=== PATIENT | male | born 1960 | race Caucasian/White ===

== ENCOUNTER 2021-05-23 20:27 | Emergency (ER) | payer OTHER, SELFPAY ==
[2021-05-23 20:36] VITALS: BP 166/96; PULSE 63; RESP 16; TEMP 36.7; O2SAT 97; BMI 21.7
--- NOTE | 2021-05-23 21:07 | XRR_ITS ---
PROCEDURE INFORMATION: Exam: XR Left Foot Exam date and time: 05/23/2021 9:07 PM Age: 61 years old Clinical indication: Swelling, leg or foot; Additional info: Osteo eval TECHNIQUE: Imaging protocol: XR Left foot. Views: 3 or more views. COMPARISON: No relevant prior studies available. FINDINGS: Bones/joints: No irregular osseous erosions. Negative for fracture. Soft tissues: No subcutaneous emphysema. XR/XR foot LT min 3V* [id number] IMPRESSION: No radiographic evidence of acute osteomyelitis.
--- NOTE | 2021-05-23 21:07 | XRR_ITS ---
PROCEDURE INFORMATION: Exam: XR Left Tibia and Fibula Exam date and time: 05/23/2021 9:07 PM Age: 61 years old Clinical indication: Swelling, leg or foot; Additional info: Osteo eval TECHNIQUE: Imaging protocol: XR Left tibia and fibula. Views: 2 views. COMPARISON: No relevant prior studies available. FINDINGS: Bones/joints: Normal. Soft tissues: Wound site along the posterior lower leg/ankle. XR/XR tibia fibula LT 2V [id number] IMPRESSION: No evidence of osteomyelitis.
--- NOTE | 2021-05-23 21:26 | W.ED.EXTPRO ---
HPI - Extremity Problem General: Chief complaint: Extremity Injury, Lower Stated complaint: left leg pain Time Seen by Provider: 05/23/21 20:42 History of Present Illness: HPI Narrative: Patient is a 59-year-old male with no known past medical history presented to emergency room with signs of worsening left lower extremity swelling, redness, warmth which started about 30 days ago when patient got off his pickup truck and scraped the back of his left leg against a metal cover. Initially patient noticed a mild bruise, however since then, patient noticed worsening wound site no left lower extreme knee swelling and pain. Patient denies any subjective fever or chills, history of diabetes, history immunocompromise, IVDU or history of HIV. Patient reports pain has significantly worsened decided to come to the emergency room for evaluation at this time. Onset: 30 days ago Duration: 30 days Intensity: moderate Location: home Review of Systems Narrative: Constitutional: no subjective fever, no generalized weakness HEENT: No vision changes CV: No chest pain, no palpitations PULM: no cough, nodyspnea. GI: No abdominal pain, no N/V/D. : No dysuria MSKEL: No muscle pain SKIN: +warmth, pain, redness on the L leg to the mid calf area NEURO: No headache, no focal weakness. HEME: No visible bruises PSYCH: Normal mood Physical Exam Narrative: EXAM NARRATIVE: Head: Atraumatic Eyes: PERRL, conjunctiva without injection ENT: Mucous membrane moist NECK: Supple without lymphadenopathy LUNGS: LCAB, no crackles/rhonchi or rales CV: RRR ABDOMEN: Soft, nontender in all quadrants, no guarding or rebound tenderness EXTREMITY: Normal RO, 2+ DP/PT pulses b/l, <3 seconds cap refill, sensations in the LEs intact b/l M SKIN: +L lower extremity posterior calf non-granulating/non-draininag wound with warmth, edema, and tenderness to palpation to the midthigh, NEURO: Awake and alert. No focal motor deficits. PSYCH: Normal mood and affect. Course Vital Signs: Vital signs: Vital Signs Temperature 98.1 F 05/23/21 20:36 Pulse Rate 63 05/23/21 20:36 Respiratory Rate 16 05/23/21 20:36 Blood Pressure 166/96 05/23/21 20:36 Pulse Oximetry 97 05/23/21 20:36 MDM - Extremity (Nontraumatic) MDM Narrative: Medical decision making narrative: 61-year-old male presenting to the emergency room with complaints of left lower extremity swelling erythema warmth concerning for possible cellulites vs abscess vs osteomyelitis. Shortly after lab work and x-ray was performed, patient eloped from the emergency department. He left behind a phone number. We have attempted to contact patient on multiple occasions with the phone number however was unsuccessful. A voicemail was left for patient to return to the emergency room to obtain antibiotics. Lab Data: Labs: Lab Results 05/23/21 Range/Units 21:33 WBC 8.2 (4.0-10.0) 10^3/ uL RBC 4.60 (4.1-5.3) 10^6/u L Hgb 15.3 (11.7-16.6) g/dL Hct 45.4 (42.0-52.0) % MCV 98.7 H (80-94) fL MCH 33.3 (28.0-34.0) pg MCHC 33.7 (30.0-36.0) g/dL RDW 12.6 (12.1-15.1) % Plt Count 275 (130-400) 10^3/c mm MPV 9.3 (7.4-10.4) fL Neut % (Auto) 41.8 % Lymph % (Auto) 40.3 % [place] % (Auto) 13.6 % Eos % (Auto) 2.6 % Baso % (Auto) 1.3 % Neut # (Auto) 3.41 (1.8-7.7) 10^3/u L Lymph # (Auto) 3.3 (0.8-4.8) 10^3/u L [place] # (Auto) 1.1 H (0.2-0.9) 10^3/u L Eos # (Auto) 0.2 (0.0-0.8) 10^3/u L Baso # (Auto) 0.1 (0.0-0.1) 10^3/u L Nucleated RBC % (a uto) 0 % Nucleated RBCs # 0.0 /100WBC Discharge Plan Discharge Patient Disposition: Home Condition: Stable Discharge Orders: Discharge ED (Routine); Ordered 08/04/21 Ordered By: Gabriel Reese Patient Instructions: Opioid Safety Coding Level of Care Code ED Bullet Assembly Press Operator for Carla Swanson
[2021-05-23 21:42] LABS: Basophils # 0.1 10^3/uL (0.0-0.1); Basophils % 1.3 %; Eosinophils # 0.2 10^3/uL (0.0-0.8); Eosinophils % 2.6 %; Hematocrit 45.4 % (42.0-52.0); Hemoglobin 15.3 g/dL (11.7-16.6); Lymphocytes # 3.3 10^3/uL (0.8-4.8); Lymphocytes % 40.3 %; Mean Corpuscular HGB Conc 33.7 g/dL (30.0-36.0); Mean Corpuscular Hemoglobin 33.3 pg (28.0-34.0); Mean Corpuscular Volume 98.7 fL (80-94); Mean Platelet Volume 9.3 fL (7.4-10.4); Monocytes # 1.1 10^3/uL (0.2-0.9); Monocytes % 13.6 %; Neutrophils # 3.41 10^3/uL (1.8-7.7); Neutrophils % 41.8 %; Nucleated Red Blood Cells % 0 %; Platelet Count 275 10^3/cmm (130-400); Red Cell Distribution Width 12.6 % (12.1-15.1); White Blood Count 8.2 10^3/uL (4.0-10.0)
[2021-05-23 22:10] LABS: Anion Gap 16.1 (5-19); Blood Urea Nitrogen 5 mg/dL (8-23); C Reactive Protein 1.6 mg/L (0.0-4.9); Calcium 8.1 mg/dL (8.5-10.5); Carbon Dioxide 24 mmol/L (22-29); Chloride 102 mmol/L (98-107); Glomerular Filtration Rate 168.5 mL/min (90-130); Glucose 126 mg/dL (65-115); Osmolality Calculated 285 mOsm/kg (285-295); Potassium 4.1 mmol/L (3.5-5.1); Sodium 138 mmol/L (136-145)
[2021-05-23 22:47] LABS: Erythrocyte Sedimentation Rate 16 mm/hr (0-10)
== END 2021-05-23 21:51 | disposition home or self-care (01) ==
PROVIDERS: Emergency Provider Emergency Medicine
DX: M79.605 Pain in left leg (principal)
CPT/HCPCS: 36415; 73590; 73630; 80048; 85025; 85651; 86140; 87040; 99283

== ENCOUNTER 2021-06-27 14:01 | Outpatient (CLI) | payer OTHER, SELFPAY | END 2021-06-27 14:02 | disposition home or self-care (01) | PROVIDERS: Visit Provider Thoracic Surgery (Cardiothoracic Vascular Surgery) | DX: I96 Gangrene, not elsewhere classified (principal); L97.822 Non-pressure chronic ulcer of other part of left lower leg with fat layer exposed; F17.210 Nicotine dependence, cigarettes, uncomplicated | CPT/HCPCS: 11043; 87070; 87077; 87176; 87186; 87205; G0463 ==

== ENCOUNTER → 2021-07-02 10:22 | Outpatient (BNVA) | payer OTHER, SELFPAY | PROVIDERS: Visit Provider Internal Medicine Cardiovascular Disease | DX: Z01.818 Encounter for other preprocedural examination (principal); I73.9 Peripheral vascular disease, unspecified; Z79.899 Other long term (current) drug therapy | CPT/HCPCS: 80048; 85025; 85610; 87635 ==

== ENCOUNTER 2021-07-03 10:21 | Outpatient (RCR) | payer OTHER, SELFPAY | END 2021-07-19 23:59 | disposition home or self-care (01) | LOC: WOUND 10:21 | PROVIDERS: Visit Provider Thoracic Surgery (Cardiothoracic Vascular Surgery) | DX: I73.9 Peripheral vascular disease, unspecified (principal); L97.822 Non-pressure chronic ulcer of other part of left lower leg with fat layer exposed; F17.210 Nicotine dependence, cigarettes, uncomplicated | CPT/HCPCS: 11042 ==

== ENCOUNTER 2021-07-04 06:46 | Outpatient (CLI) | payer OTHER, SELFPAY ==
[2021-07-04] VITALS (14 sets, daily range): BP systolic 132–154; BP diastolic 73–97; PULSE 78–92; RESP 16–26; TEMP 36.9; O2SAT 92–99; BMI 24.1
--- NOTE | 2021-07-04 07:30 | XACV_ITS ---
Ht: 183 cm Wt: 81 kg BSA: 2.03 m2 Gender: Male : 1960 Exam Type: Invasive Peripheral Vascular Procedure(s): Procedure Description: Peripheral Cath Diagnostic Procedure Procedure Description: Abdominal aortic angiography Procedure Description: Lower extremities' angiography Procedure Description: Peripheral vascular Intervention Procedure Description: PV Balloon Exam Priority: Routine Lower Extremity Interventional Findings Percutaneous angioplasty/intervention of the left SFA: Using right common femoral approach along 6 [place] sheath was placed. With the help of Glidewire and seeker we were able to cross through long lesion of left SFA popliteal vessel into left tibioperoneal trunk and tibial artery. Multiple balloon angioplasty using nondrug coated balloon was performed first. It was followed by drug-coated balloon application using Lutonix balloon within the prior stent and proximal segment to it.. Please read the details in the right and the segment. Please also note that patient was explained all risk benefit and alternative for the drug-coated balloon he understand FDA warning regarding higher mortality and subsets, he gave me permission to proceed with it if required. Excellent angiographic result in left SFA popliteal, tibioperoneal trunk was noted. Good three-vessel runoff including anterior and posterior tibial and peroneal artery was noted below the left knee all the way to the foot. . Conclusions Indication for peripheral angiogram and intervention: Critical limb ischemia in the patient with history of prior stent in mid to distal left SFA. Abnormal noninvasive study suggestive of no flow in the left SFA and below the knee. Abdominal angiogram: Luminal irregularity of abdominal aorta without significant embolism, normal right and left renal artery without significant stenosis, bilaterally common iliac arteries without significant stenosis, bilateral external/internal artery without significant stenosis, bilateral common femoral artery without significant stenosis, bilateral profundofemoral artery without significant stenosis.Left SFA is chronically occluded from proximal to distal segment. Mid to distal left SFA stent appeared to be chronically occluded. Left popliteal artery no flow was noted. No flow was observed in left tibioperoneal trunk or below the knee.Right SFA, popliteal, tibioperoneal trunk did not show significant stenosis. Due to less contrast vessels below the right knee was not well visualized probably patent . Recommendations 1-Return to inpatient for close monitoring and routine cath care2-Risk factor modification for secondary prevention3-Statin and aspirin 81 mg life--long, if tolerated 4-Patient was pre-loaded with 3 00 mg of Plavix, continue Plavix 75mg p.o. daily for at least three months. 5-Continue optimal medical management6-Follow up with Dr. Heller in four weeks and your primary care in 10 days. Hemodynamic Data Phase:Rest AO : 184.0 / 86.0 ( 125.0 ) @ 8:50:00 AM Access Site Site: Femoral artery Sheath Size: 6 Fr Hemost... Success: Unsuccessful Procedure Details Findings Procedure Consent Obtained. Admit Source: Out Patient. Identified patient by full name and date of as verbalized by the patient/guarantor. Does the consent match the physician's order: Yes. Accurate & Complete Informed Consent: Yes. Inpatient/Outpatient History & Physical on Chart: Yes. If H&P is completed, is and addenduem needed:. Relevant Radiology Images available: Yes. Pre-op teaching completed and patient verbalized understanding. The risks, benefits, and alternatives of sedation and/or procedure were discussed by physician. The patient agrees to continue. Procedure started. Correct patient, site and procedure confirmed by cath team. PERRLA. Strong, equal hand raisin separator operator bilaterally. Lungs clear x 5 lobes. IV Site on Arrival: 20 gauge in the left anticubital. IV Fluids: 0.9% NaCl at KVO. 75 mL infused prior to mill labor supervisor. Pre Procedural Pulses: right dorsalis pedis was Doppled. Pre Procedural Pulses: left dorsalis pedis was Absent. Pre Procedural Pulses: right posterior tibial was Doppled. Pre Procedural Pulses: left posterior tibial was Absent. Oxygen started at 2liters/min via nasal canula. right groin was prepped with chloroprep then draped in the usual sterile fashion. Physician notified. Physician arrived. Physician scrubbed in. Time out performed with cath team. Lidocaine 1% infiltrated to the right groin. Wire and needle out. Arterial access obtained with micropuncture set. A 5F UF catheter in over wire. Catheter out over the Glidewire. Sheath upsized to a 6 Fr Flexor. Seeker catheter inserted over the wire. Seeker out. Inflation number : 1 A AB Brewster 35 SUPPLY CHAIN PROGRAM MANAGER Catheter [id number] was prepped and advanced across the Superficial Femoral, Left , then inflated to 6 MISSAEL for 1:55 seconds. Inflation number: 2 The AB Brewster 35 SUPPLY CHAIN PROGRAM MANAGER Catheter [id number] was reinflated across the Superficial Femoral, Left, to 4 MISSAEL for 2:03 seconds. Inflation number: 3 The AB Brewster 35 SUPPLY CHAIN PROGRAM MANAGER Catheter [id number] was reinflated across the Superficial Femoral, Left, to 8 MISSAEL for 2:03 seconds. Inflation number: 4 The AB Brewster 35 SUPPLY CHAIN PROGRAM MANAGER Catheter [id number] was reinflated across the Superficial Femoral, Left, to 8 MISSAEL for 2:03 seconds. Balloon out. Results checked. Inflation number : 5 A Bard Lutonix 035 [id number] was prepped and advanced across the Superficial Femoral, Left , then inflated to 6 MISSAEL for 2:00 seconds. Lot [id number] Exp 10/31/2023. Inflation number: 6 The Bard Lutonix 035 [id number] was reinflated across the Superficial Femoral, Left, to 6 MISSAEL for 0:55 seconds. Results checked. Balloon out, sheath exchanged for short 6Fr sheath. Sheath injected in Right common femoral artery and runoff performed at 10 for 30. Sheath(s) sutured into position with 2-0 silk and sterile 4x4's and Op-site applied over the site. No oozing or signs and symptoms of hematoma noted. Arterial sheath flushed and connected to tranducer and pressure bag with heparinized saline. Post Procedure: Pulses reassessed and unchanged. PERRLA. Strong, equal hand raisin separator operator bilaterally. No VTE prophylaxis required. Medication's Wasted: Other Hydralazine = 10 mg. Medication's Wasted: Heparin = 3000 u. Total IV fluids: 100 mL. Contrast type used: Visipaque 320 mgI/mL, 500 mL bottle. Contrast Material : Visipaque 150 ml. Estimated blood loss: 5mL-10mL. Procedure completed. Patient transferred by bed to 1st floor. Vital chart was stopped. Procedure Medications Start: 9:18 AM Stop: 9:18 AM Medication: Versed Amount: 1 mg Route: I.V. Start: 9:27 AM Stop: 9:27 AM Medication: Versed 1 mg and Fentanyl 25 mcg Route: I.V. Start: 9:48 AM Stop: 9:48 AM Medication: Heparin Amount: 6000 units Route: I.V. Start: 9:53 AM Stop: 9:53 AM Medication: Versed 1 mg and Fentanyl 25 mcg Route: I.V. Start: 10:05 AM Stop: 10:05 AM Medication: Versed Amount: 1 mg Route: I.V. Start: 10:08 AM Stop: 10:08 AM Medication: Fentanyl Amount: 50 mcg Start: 10:15 AM Stop: 10:15 AM Medication: Hydralazine Amount: 10 mg Route: I.V. Start: 10:16 AM Stop: 10:16 AM Medication: Plavix Amount: 300 mg Route: P.O. I, the attending physician, have reviewed and verified all procedure medications. Yes, all medications given per verbal order History/Risk Factors Hypertension: No Dyslipidemia: No Peripheral Arterial Disease (PAD): Yes Obesity: No Renal Disease: No Tobacco Use: Current/Recent(w/in 1 year) Prior Interventions PCI: No CABG: No Valve Surgery: No Report Signatures Finalized by Anatoliy Heller MD on 07/18/2021 07:41 PM
[2021-07-04] MEDS: diphenhydrAMINE 50 mg Capsule PO (08:06)
--- NOTE | 2021-07-04 11:05 | W.PM.OPSUD ---
Surgery/Procedure H&P Update DATE OF PROCEDURE: July 04, 2021 DATE H&P PERFORMED: 06/28/21 H&P UPDATE INFORMATION: I have reviewed H&P completed within last 30 days and I have examined patient prior to procedure PREOP DIAGNOSIS: Critical limb ischemia with nonhealing ulcer PLANNED PROCEDURE: Operation Date: 07/04/21 08:30 Proposed Procedures p Peripheral Diagnostic(Bilateral) - Anatoliy Heller MD PATIENT REASSESSED PRIOR TO SEDATION, WITH NO CHANGE NOTED: Yes PHYSICAL EXAM: alert, oriented x 3 and clear to auscultation bilaterally AIRWAY EVAL/ANESTHESIA PLAN: ASA II and Risks, benefits & alternatives of sedation and/or procedure discussed ADDITIONAL INFORMATION: Patient has been explained all risk benefit and already vascular injury thromboembolic phenomena leading to acute limb ischemia amputation. Patient has been consented regarding drug-coated balloon use he understand the risk for bad outcome in that group he is understand the risk for FDA warning. He would like to proceed with it.
[2021-07-04] MEDS: aspirin 81 mg EC Tablet PO (12:53)
[2021-07-04] MEDS: amlodipine 5 mg Tablet PO (12:54)
[2021-07-04] MEDS: sodium chloride 0.9% 1,000 ML 100 ML IV (12:57)
[2021-07-04 13:45] LABS: Partial Thromboplastin Time 29.6 SECONDS (23.9-36.7)
[2021-07-04] MEDS: HYDROcodone-acetaminophen 5-325 mg Tablet 1 TAB PO (14:26)
--- NOTE | 2021-07-04 15:56 | PC.NURSE ---
Pts cardiac sheath pulled at approximately 1525 , pressure held for 20 minutes. Pt tolerated well. No hematoma, bruising, swelling, or excess bleeding noted. Drsg in place dry and intact. Pt had no c/o pain or discomfort at the present time. Call light in reach. Will cont to monitor.
[2021-07-04] MEDS: amoxicillin-clav 875-125 mg Tablet 1 TAB PO (18:04)
[2021-07-04] MEDS: sulfamethoxazole-trimeth DS 160-800 mg Tablet 1 TAB PO (18:04)
--- NOTE | 2021-07-05 00:24 | PC.NURSE ---
Discharge Note 07/04/2021 2200: Patient discharged to home via personal transportation accompanied by personal friend. Discharge instructions reviewed with patient and/or event sales representative. Mobile pharmacy medications and/or prescriptions provided. IV removed, pressure dressing applied. Belongings/home medications returned. Patient verbalized understanding of all teaching.
== END 2021-07-04 20:30 | disposition home or self-care (01) ==
LOC: CCL 06:51 → CSU 19:35
PROVIDERS: Visit Provider Internal Medicine Cardiovascular Disease
DX: I70.222 Atherosclerosis of native arteries of extremities with rest pain, left leg (principal); I10 Essential (primary) hypertension; E78.5 Hyperlipidemia, unspecified; F17.210 Nicotine dependence, cigarettes, uncomplicated
CPT/HCPCS: 36415; 37224; 75625; 75716; 85730; C1725; C1769; C1887; C1894; C2623; J0360; J1644; J2250; J3010; J7030; Q0163; Q9967

== ENCOUNTER 2021-07-11 14:48 | Outpatient (CLI) | payer OTHER, SELFPAY | END 2021-07-11 14:49 | disposition home or self-care (01) | LOC: WOUND 14:49 | PROVIDERS: Visit Provider Thoracic Surgery (Cardiothoracic Vascular Surgery) | DX: I73.9 Peripheral vascular disease, unspecified (principal); L97.822 Non-pressure chronic ulcer of other part of left lower leg with fat layer exposed; F17.210 Nicotine dependence, cigarettes, uncomplicated | CPT/HCPCS: 11042 ==

== ENCOUNTER 2021-07-18 12:58 | Outpatient (CLI) | payer OTHER, SELFPAY | END 2021-07-18 12:59 | disposition home or self-care (01) | LOC: WOUND 12:59 | PROVIDERS: Visit Provider Thoracic Surgery (Cardiothoracic Vascular Surgery) | DX: I73.9 Peripheral vascular disease, unspecified (principal); L97.822 Non-pressure chronic ulcer of other part of left lower leg with fat layer exposed; F17.200 Nicotine dependence, unspecified, uncomplicated | CPT/HCPCS: 11042 ==

== ENCOUNTER → 2024-05-20 08:41 | Outpatient (BNVA) | payer MEDICARE, OTHER, MEDICAID, SELFPAY | PROVIDERS: PCP Family Medicine; Visit Provider Family Medicine | DX: I10 Essential (primary) hypertension (principal); Z12.5 Encounter for screening for malignant neoplasm of prostate; N40.0 Benign prostatic hyperplasia without lower urinary tract symptoms | CPT/HCPCS: 80053; 80061; 84153; 84439; 84443; 85025 ==

== ENCOUNTER 2024-05-24 07:04 | Outpatient (CLI) | payer MEDICARE, OTHER, MEDICAID, SELFPAY ==
--- NOTE | 2024-05-24 07:45 | CT_ITS ---
WS: [id number] LDCT LUNG CANCER SCREENING HISTORY: screening TECHNIQUE: Axial imaging performed from the apices to 1 cm below the costophrenic angles. Coronal and sagittal reformats are submitted with axial MIP series. All CT scans at [facility] use at least one of these dose optimization techniques: automated exposure control; mA and/or kV adjustment per patient size (includes targeted exams where dose is matched to clinical indication); or iterativ e reconstruction. DLP: 72.21 mGy.cm DIvol: Mean CTDIvol: 1.30 (mGy) COMPARISON: None available. Diagnostic quality: Satisfactory Lungs: Mild pulmonary hyperexpansion. Paraseptal and centrilobular emphysema. No pulmonary mass or no dule. No endobronchial lesions. Benign calcified granuloma LEFT lung base. Heart: Normal size heart with no pericardial effusion.. Other findings: No adenopathy identified. Mild atherosclerosis aorta. No pericardial or pleural effus ions. Visualized adrenal glands are negative. CT/CT lung screening [id number] IMPRESSION: LUNG-RADS: 2-Benign Appearance or Behavior FOLLOW UP: 12 Month: Continue annual screening with LDCT OTHER FINDINGS (S MODIFIER): None.
== END 2024-05-24 07:05 | disposition home or self-care (01) ==
LOC: RAD 07:04
PROVIDERS: PCP Family Medicine; Visit Provider Family Medicine
DX: Z12.2 Encounter for screening for malignant neoplasm of respiratory organs (principal); F17.219 Nicotine dependence, cigarettes, with unspecified nicotine-induced disorders; J43.8 Other emphysema; J43.2 Centrilobular emphysema; J84.10 Pulmonary fibrosis, unspecified
CPT/HCPCS: 71271

== ENCOUNTER → 2024-07-01 15:00 | Outpatient (BNVA) | payer OTHER, MEDICAID, SELFPAY | PROVIDERS: PCP Family Medicine; Visit Provider Family Medicine | DX: Z91.014 Allergy to mammalian meats (principal) | CPT/HCPCS: 82785; 86001; 86003; 86008 ==

== ENCOUNTER 2025-02-13 07:05 | Emergency (ER) | payer MEDICARE, MEDICAID, SELFPAY ==
[2025-02-13] VITALS (8 sets, daily range): BP systolic 101–140; BP diastolic 59–67; PULSE 68–78; RESP 16–24; TEMP 36.8; O2SAT 87–96; BMI 24.4
--- NOTE | 2025-02-13 07:06 | XRR_ITS ---
PROCEDURE INFORMATION: Exam: XR Chest Exam date and time: 02/13/2025 7:26 AM Age: 64 years old Clinical indication: Pain; Shortness of breath and other: Distended abdomen; Chest pressure; Additional info: Cp TECHNIQUE: Imaging protocol: Radiologic exam of the chest. Views: 1 view. COMPARISON: CT lung screening [id number] 05/24/2024 7:36 AM FINDINGS: Lungs: The lungs are clear. Lungs appear mildly hyperinflated suggesting possible asthma or COPD. Pleural spaces: Unremarkable. No pleural effusion. No pneumothorax. Heart/Mediastinum: The heart size is within normal limits. Vasculature: There are atherosclerotic changes in the aorta. Bones/joints: Unremarkable. XR/XR chest 1V portable [id number] IMPRESSION: 1. No acute infiltrates 2. Lungs appear mildly hyperinflated suggesting possible asthma or COPD
--- NOTE | 2025-02-13 07:12 | CTR_ITS ---
PROCEDURE INFORMATION: Exam: CTA Chest With Contrast Exam date and time: 02/13/2025 7:59 AM Age: 64 years old Clinical indication: Abdominal tenderness and bloating; Shortness of breath; Additional info: SOB TECHNIQUE: Imaging protocol: Computed tomographic angiography of the chest with contrast. Exam focused on the arteries. 3D rendering (Not supervised by radiologist): MIP and/or 3D reconstructed images were created by the technologist. Radiation optimization: All CT scans at this facility use at least one of these dose optimization techniques: automated exposure control; mA and/or kV adjustment per patient size (includes targeted exams where dose is matched to clinical indication); or iterative reconstruction. Contrast material: OMNIPAQUE 350; Contrast volume: 100 ml; Contrast route: INTRAVENOUS (IV); COMPARISON: CT lung screening [id number] 05/24/2024 7:36 AM RADIATION DOSE METRICS: Total DLP (mGy-cm): 1220.68 FINDINGS: Pulmonary arteries: No pulmonary embolus is detected in the main pulmonary trunk. None is detected in the main right or left pulmonary arteries. No pulmonary embolus is detected in the proximal 2nd or 3rd order branch vessels. Aorta: There are atherosclerotic changes in the thoracic aorta without aneurysm or dissection. Lungs: There is mild atelectasis in the left lung base. There are no definite infiltrates or pulmonary masses. There is a calcified granuloma in the left lower lobe. There are no endobronchial lesions. Pleural spaces: There is no pleural effusion. Heart: The heart size is within normal limits. There is no pericardial effusion. Coronary arteries: There is coronary artery calcification. There is coronary artery calcification. Lymph nodes: There are few borderline prominent mediastinal and hilar lymph nodes which are nonspecific Bones/joints: There are degenerative changes in the spine there is mucous plugging in left lower lobe bronchi Soft tissues: There is bilateral gynecomastia. PROCEDURE INFORMATION: Exam: CT Abdomen And Pelvis With Contrast Exam date and time: 02/13/2025 7:59 AM Age: 64 years old Clinical indication: Abdominal tenderness and bloating; Shortness of breath; Additional info: SOB TECHNIQUE: Imaging protocol: Computed tomography of the abdomen and pelvis with contrast. Radiation optimization: All CT scans at this facility use at least one of these dose optimization techniques: automated exposure control; mA and/or kV adjustment per patient size (includes targeted exams where dose is matched to clinical indication); or iterative reconstruction. Contrast material: OMNIPAQUE 350; Contrast volume: 100 ml; Contrast route: INTRAVENOUS (IV); COMPARISON: CT lung screening [id number] 05/24/2024 7:36 AM RADIATION DOSE METRICS: Total DLP (mGy-cm): 1220.68 FINDINGS: Liver: The liver is diffusely fatty infiltrated. There are no focal liver lesions. Gallbladder and biliary ducts: There are no gallstones. There is no gallbladder wall thickening or biliary ductal dilatation. Pancreas: There is no pancreatic mass or pancreatic ductal dilatation. Spleen: There are splenic granulomata. The spleen is otherwise unremarkable. Adrenal glands: The adrenal glands are normal. Kidneys and ureters: There are no renal or ureteral calculi. There is no hydronephrosis. There is mild right perinephric fat stranding Stomach and bowel: There are dilated loops of small and large bowel with air-fluid levels consistent with an adynamic ileus. The bowel-gas pattern does not appear obstructed. Appendix: The appendix is not definitively identified. There are no inflammatory changes adjacent to the cecum. Intraperitoneal space: Unremarkable. No free air. No significant fluid collection. Vasculature: The portal venous system is patent. There are atherosclerotic changes involving the aorta without aneurysm. Without aneurysm Lymph nodes: Unremarkable. No enlarged lymph nodes. Urinary bladder: The bladder is mildly distended. Reproductive: The prostate gland is enlarged and mildly heterogeneous. Bones/joints: There are degenerative changes in the symphysis, hips, sacroiliac joints and spine Soft tissues: Unremarkable CT/CT angio chest w abd pel w con IMPRESSION: 1. Negative for aortic aneurysm or dissection 2. Negative for detectable pulmonary embolus 3. Coronary artery calcification 4. Borderline mediastinal and hilar lymph nodes. 5. Some mucous plugging left lower lobe bronchi 6. Negative for infiltrate IMPRESSION: 1. Fatty infiltration liver no focal liver lesions 2. Bowel-gas pattern most consistent with a mild adynamic ileus 3. Appendix not identified but no inflammatory changes adjacent to the cecum 4. Enlarged prostate gland
--- NOTE | 2025-02-13 07:13 | ECG_ITS ---
[facility] Test Date: 2025-02-13 Pat Name: Jim Denis Department: Room: Gender: Male Injection Molding Process Technician: : 1960 Requested By: Luz Maria Tatum Order Number: [id number] Pranay MD: KELLY MANNING Measurements Intervals [place] Rate: 72 P: 84 RI: 188 QRS: 99 QRSD: 97 T: 79 QT: 424 QTc: 466 Interpretive Statements SINUS RHYTHM BORDERLINE RIGHT AXIS DEVIATION [QRS AXIS > 90] No previous ECG available for comparison Electronically Signed On 02-14-2025 20:59:18 CDT by KELLY MANNING [id number]
[2025-02-13 07:24] LABS: Basophils % 0.4 %; Eosinophils # 0.1 10^3/uL (0.0-0.8); Hematocrit 40.8 % (37-53); Lymphocytes # 2.8 10^3/uL (0.8-4.8); Lymphocytes % 42.1 %; Mean Corpuscular HGB Conc 35.3 g/dL (30-55); Mean Corpuscular Volume 93.6 fl (82-101); Mean Platelet Volume 10.1 fL (7.4-10.4); Monocytes # 0.7 10^3/uL (0.2-0.9); Monocytes % 10.9 %; Neutrophils # 3.02 10^3/uL (1.8-7.7); Neutrophils % 45.5 %; Nucleated Red Blood Cells % 0 %; Platelet Count 140 10^3/cmm (157-399); Red Blood Count 4.36 10^6/uL (3.85-5.65); Red Cell Distribution Width 13.6 % (12.1-15.1); White Blood Count 6.67 10^3/uL (3.29-11.43)
--- NOTE | 2025-02-13 07:25 | ED_ITS ---
HPI - Chest Pain 2 General: Chief Complaint: Chest Pain Stated Complaint: chest pain Time Seen by Provider: 02/13/25 07:06 Source: patient and EMS Mode of arrival: EMS Limitations: no limitations History of Present Illness: 65-year-old male here with multiple comp laints. Patient states that he has been having chest pain over the last 2 days he also been having some shortness of breath along with abdominal pain abdominal distention. States his pain is a 6 out of 10. Patient is requiring 2 L oxygen here does not typically wear oxygen denies any worse improving factors. Associated symptoms: Reports abdominal pain and dyspnea; Deny fever(s), nausea or vomiting Related Data Previous Rx's ?Medication ?Instructions ?Recorded aspirin 81 mg tablet,delayed 81 mg PO DAILY #90 tabs 0 05/20/24 release hydrochlorothiazide 12.5 mg tablet 12.5 mg PO QAM #90 tabs 11/17/24 amlodipine 10 mg tablet 10 mg PO DAILY #90 tabs 12/19 05/13 atorvastatin 40 mg tablet (Lipitor) 40 mg PO DAILY #90 tabs 01/13/25 tamsulosin 0.4 mg capsule (Flomax) 0.4 mg PO DAILY #90 caps 01/13/25 cephalexin 500 mg capsule 500 mg PO TID 7 days #21 cap s 02/13/25 prednisone 50 mg tablet 50 mg PO DAILY #5 tabs 02/13 Allergies Allergy/AdvReac Type Severity Reaction Status Date / Time Alpha-Gal Allergy ALGY-Anaphy Verified 02/13/25 07:14 (Lypnkqxic-Ylviv-4,3-Gala laxis Review of Systems 2 Const: Denies: fever(s), chills, body aches or change in appetite ENMT: Denies: throat pain or dental pain Card: Reports: chest pain Resp: Reports: dyspnea GI: Reports: abdominal pain; Denies: nausea, vomiting or diarrhea : Denies: dysuria Musc: Denies: neck pain or back pain Skin/Breast: Denies: rash Neuro: Denies: headache(s) PFSH ED 2 PFSH: Medical History (Updated 02/13/25 @ 09:36 by Luz Maria Tatum MD) BPH (benign prostatic hyperplasia) Tobacco use disorder, moderate, dependence Peripheral artery disease Hyperlipidemia Essential hypertension PVD (peripheral vascular disease) History of vitreous hemorrhage of left eye Surgical History (Updated 05/20/24 @ 08:34 by Sami Reveles MD) History of surgery on arm Status post arterial stent Family History (Updated 05/20/24 @ 07:54 by Mere Mendez LPN) Grandmother Diabetes Father Diabetes Social History (Updated 05/20/24 @ 07:54 by Mere Mendez LPN) Smoking and tobacco/nicotine status: current every day tobacco/nicotine user Alcohol intake: current Alcohol intake frequency: holidays/special occasions only Alcohol type: beer Substance/Drug Use: never Physical Exam 2 Const: COMMON NORMALS: patient oriented x3 HENMT: COMMON NORMALS: normocephalic and atraumatic HEAD & SCALP: n ormocephalic and atraumatic Eye: COMMON NORMALS: Equal, round and reactive pupils present and EOMs intact bilaterally PUPIL: Yes Equal, round and reactive pupils present Neck/C-Spine: COMMON NORMALS: full ROM and supple Chest: COMMONS NORMALS: normal inspection of the chest Resp: COMMON NORMALS: No retractions, No use of accessory muscles and clear to auscultation bilaterally AUSCULTATION: clear to auscultation bilaterally Cardio: COMMON NORMALS: regular rate, regular rhythm and No murmurs present (Cardio) RATE: regular rate RHYTHM: regular rhythm GI: COMMON NORMALS: no masses OTHER: abd distended with diffuse tenderness Extremity: COMMON NORMALS: normal to inspection and full ROM Neuro: COMMON NORMALS: patient oriented x3, moves all extremities and no focal motor deficits Psych: COMMON NORMALS: mental status grossly normal, Normal thought process present and cooperative THOUGHT PROCESS: Normal thought process present Skin: COMMON NORMALS: no rashes or lesions noted and no wounds GENERAL SKIN EXAM: no rashes or lesions noted Course 2 Vital Signs: Vital signs: Vital Signs Temperature 98.3 F 02/13/25 07:06 Pulse Rate 71 02/13/25 09:58 Respiratory Rate 16 02/13/25 08:13 Blood Pressure 140/65 02/13/25 09:58 Pulse Oximetry 91 02/13/25 09:58 Oxygen Delivery Me thod Room Air 02/13/25 09:00 MDM - Chest Pain Medical Decision Making Patient presents here with shortness of breath he feels much improved after breathing treatments likely bronchitis CT here showed no acute findings his pulse ox here has been that have RT walk him and did not desaturate. Will place him on steroids along with antibiotics he is to follow-up with PCP and return if worsening he understands agrees to plan. Medical Records I reviewed the patient's medical records. Lab Data I reviewed the patient's lab results. 02/13/25 07:00 02/13/25 07:00 Radiology Impressions Chest X-Ray 02/13/25 07:06 IMPRESSION: 1. No acute infiltrates 2. Lungs appear mildly hyperinflated suggesting possible asthma or COPD Chest/Abdomen/Pelvis CT 02/13/25 07:12 IMPRESSION: 1. Negative for aortic aneurysm or dissection 2. Negative for detectable pulmonary embolus 3. Coronary artery calcification 4. Borderline mediastinal and hilar lymph nodes. 5. Some mucous plugging left lower lobe bronchi 6. Negative for infiltrate IMPRESSION: 1. Fatty infiltration liver no focal liver lesions 2. Bowel-gas pattern most consistent with a mild adynamic ileus 3. Appendix not identified but no inflammatory changes adjacent to the cecum 4. Enlarged prostate gland Laboratory Results WBC 6.67 10^3/uL (3.29-11.43) 02/13/25 07:00 RBC 4.36 10^6/uL (3.85-5.65) 02/13/25 07:00 Hgb 14.40 g/dL (11.27-16.99) 02/13/25 07:00 Hct 40.8 % (37-53) 02/13/25 07:00 MCV 93.6 fl (82-101) 02/13/25 07:00 MCH 33.0 pg (27-33) 02/13/25 07:00 MCHC 35.3 g/dL (30-55) 02/13/25 07:00 RDW 13.6 % (12.1-15.1) 02/13/25 07:00 Plt Count 140 10^3/cmm (157-399) L 02/13/25 07:00 MPV 10.1 fL (7.4-10.4) 02/13/25 07:00 Neut % (Auto) 45.5 % 02/13/25 07:00 Lymph % (Auto) 42.1 % 02/13/25 07:00 [place] % (Auto) 10.9 % 02/13/25 07:00 Eos % (Auto) 1.0 % 02/13/25 07:00 Baso % (Auto) 0.4 % 02/13/25 07:00 Neut # (Auto) 3.02 10^3/uL (1.8-7.7) 02/13/25 07:00 Lymph # (Auto) 2.8 10^3/uL (0.8-4.8) 02/13/25 07:00 [place] # (Auto) 0.7 10^3/uL (0.2-0.9) 02/13/25 07:00 Eos # (Auto) 0.1 10^3/uL (0.0-0.8) 02/13/25 07:00 Baso # (Auto) 0.0 10^3/uL (0.0-0.1) 02/13/25 07:00 Nucleated RBC % (auto) 0 % 02/13/25 07:00 Nucleated RBCs # 0.0 /100WBC 02/13/25 07:00 Sodium 125 mmol/L (136-145) L 02/13/25 07:00 Potassium 3.9 mmol/L (3.5-5.1) 02/13/25 07:00 Chloride 90 mmol/L (98-107) L 02/13/25 07:00 Carbon Dioxide 25 mmol/L (22-29) 02/13/25 07:00 Anion Gap 13.9 (5-19) 02/13/25 07:00 BUN 9 mg/dL (8-23) 02/13/25 07:00 Creatinine 0.5 mg/dL (0.7-1.2) L 02/13/25 07:00 GFR Calculation 166.9 mL/min (90-130) H 02/13/25 07:00 Glucose 150 mg/dL (65-115) H 02/13/25 07:00 Calculated Osmolality 262 mOsm/kg (285-295) L 02/13/25 07:00 Calcium 8.0 mg/dL (8.5-10.5) L 02/13/25 07:00 Total Bilirubin 1.5 mg/dL (0.15-1.2) H 02/13/25 07:00 AST 204 U/L (0-40) H 02/13/25 07:00 ALT 97 U/L (0-41) H 02/13/25 07:00 Alkaline Phosphatase 134 U/L (40-130) H 02/13/25 07:00 Troponin T Baseline 16 ng/L (0-15) H 02/13/25 07:00 Troponin T 120 Minute 17.04 ng/L (0-15) H 02/13/25 08:54 Delta Troponin T 1.04 ABS# (0-10) 02/13/25 08:54 Total Protein 6.5 g/dL (6.6-8.7) L 02/13/25 07:00 Albumin 3.4 g/dL (3.5-5.2) L 02/13/25 07:00 Globulin 3.1 g/dL (1.3-4.6) 02/13/25 07:00 Lipase 21 U/L (13-60) 02/13/25 07:00 Urine Color Yellow (Yellow) 02/13/25 07:23 Urine Appearance Clear (CLEAR) 02/13/25 07:23 Urine pH 6.0 (5-7) 02/13/25 07:23 Ur Specific [place] 1.003 (1.005-1.030) L 02/13/25 07:23 Urine Protein Negative (Negative) 02/13/25 07:23 Urine Glucose (UA) Negative (Normal) 02/13/25 07:23 Urine Ketones Negative (Negative) 02/13/25 07:23 Urine Blood Negative (Negative) 02/13/25 07:23 Urine Nitrate Negative (Negative) 02/13/25 07:23 Urine Bilirubin Negative (Negative) 02/13/25 07:23 Urine Urobilinogen 1.0 mg/dL (Negative) 02/13/25 07:23 Ur Leukocyte Esterase Negative (Negative) 02/13/25 07:23 Urine RBC 0-2 /hpf (0-2) 02/13/25 07:23 Urine WBC 0-5 /hpf (0-5) 02/13/25 07:23 Ur Squamous Epith Cells 0-5 /hpf (0-5) 02/13/25 07:23 Amorphous Sediment Not Reportable 02/13/25 07:23 Urine Bacteria None seen /hpf (NONE) 02/13/25 07:23 Hyaline Casts 0-4 /lpf H 02/13/25 07:23 All radiology interpretation(s) finalized by discharge EKG Data EKG 1: I personally reviewed and interpreted this EKG as follows: EKG interpretation date: 02/13/25 EKG interpretation time: 07:13 Interpretation: nsr hr [address] elevation qrs 97 qtc 448 Discharge Plan Discharge Patient Disposition: Home Clinical Impression: Bronchitis Condition: Stable Prescriptions: New cephalexin 500 mg capsule 500 mg PO TID 7 Days Qty: 21 0RF prednisone 50 mg tablet 50 mg PO DAILY Qty: 5 0RF No Action aspirin 81 mg tablet,delayed release (DR/EC) 81 mg PO DAILY Qty: 90 4RF hydrochlorothiazide 12.5 mg tablet 12.5 mg PO QAM Qty: 90 0RF atorvastatin [Lipitor] 40 mg tablet 40 mg PO DAILY Qty: 90 1RF amlodipine 10 mg tablet 10 mg PO DAILY Qty: 90 1RF tamsulosin [Flomax] 0.4 mg capsule 0.4 mg PO DAILY Qty: 90 1RF Discharge Orders: Discharge ED (Routine); Ordered 02/13/25 Ordered By: Luz Maria Tatum Referrals: Sami Reveles MD [Primary Care Provider] - 4-7 days Discharge Diet: Advance as tolerated Discharge Activity: Resume usual activity Patient Instructions: Bronchitis (Acute) - Adult Print Language: Pakistani Coding Level of Care Code ED Algology Teacher for Carla Swanson
[2025-02-13 07:44] LABS: Alanine Aminotransferase 97 U/L (0-41); Albumin Level 3.4 g/dL (3.5-5.2); Alkaline Phosphatase 134 U/L (40-130); Anion Gap 13.9 (5-19); Aspartate Amino Transferase 204 U/L (0-40); Blood Urea Nitrogen 9 mg/dL (8-23); Carbon Dioxide 25 mmol/L (22-29); Chloride 90 mmol/L (98-107); Creatinine Clr Calc Pharmacy 103.1495; Globulin 3.1 g/dL (1.3-4.6); Glomerular Filtration Rate 166.9 mL/min (90-130); Glucose 150 mg/dL (65-115); Lipase 21 U/L (13-60); Osmolality Calculated 262 mOsm/kg (285-295); Potassium 3.9 mmol/L (3.5-5.1); Sodium 125 mmol/L (136-145); Total Bilirubin 1.5 mg/dL (0.15-1.2); Total Protein 6.5 g/dL (6.6-8.7); Troponin(5th) Baseline 16 ng/L (0-15)
[2025-02-13] MEDS: iohexol 350 mg/mL 500 mL Btl (per mL) IV (08:11)
[2025-02-13 08:12] LABS: Bilirubin Urine Negative (Negative); Blood Urine Negative (Negative); Glucose Urine UA Negative (Normal); Ketones Urine Negative (Negative); Leukocyte Esterase Urine Negative (Negative); Nitrate Urine Negative (Negative); Protein Urine Negative (Negative); Specific Gravity, Urine 1.003 (1.005-1.030); Urine Appearance Clear (CLEAR); Urine Color Yellow (Yellow)
[2025-02-13 08:17] LABS: Add Urine Microscopic? YES; Bacteria Urine None Seen /hpf; Hyaline Casts Urine 0-4 /lpf; RBC Urine 0-2 /hpf (0-2); Squamous Epithelial Cell Urine 0-5 /hpf (0-5); WBC Urine 0-5 /hpf (0-5)
[2025-02-13] MEDS: sodium chloride 0.9% 1,000 ML 999 ML IV (08:30)
--- NOTE | 2025-02-13 08:45 | PC.PHAR ---
Patient states he hasn't taken his medication in maybe two weeks . Patient states he just stopped taking it ..
[2025-02-13 09:16] LABS: Troponin 5 2HR 17.04 ng/L (0-15); Troponin 5 2HR Delta 1.04 ABS# (0-10)
== END 2025-02-13 09:59 | disposition home or self-care (01) ==
PROVIDERS: Emergency Provider Emergency Medicine; PCP Family Medicine
DX: J40 Bronchitis, not specified as acute or chronic (principal); Z79.82 Long term (current) use of aspirin; Z72.0 Tobacco use; E78.5 Hyperlipidemia, unspecified; I10 Essential (primary) hypertension
CPT/HCPCS: 71045; 71275; 74177; 80053; 81001; 83690; 84484; 85025; 93005; 94760; 96360; 99285; J7030

== ENCOUNTER → 2025-04-20 15:23 | Outpatient (BNVA) | payer MEDICARE, MEDICAID, SELFPAY | PROVIDERS: PCP Family Medicine; Visit Provider Family Medicine | DX: I10 Essential (primary) hypertension (principal); N40.0 Benign prostatic hyperplasia without lower urinary tract symptoms; Z12.5 Encounter for screening for malignant neoplasm of prostate | CPT/HCPCS: 80053; 80061; 84153; 85025 ==

== ENCOUNTER → 2025-04-29 07:32 | Outpatient (BNVA) | payer MEDICARE, MEDICAID, SELFPAY | PROVIDERS: PCP Family Medicine; Visit Provider Family Medicine | DX: R73.9 Hyperglycemia, unspecified (principal) | CPT/HCPCS: 83036 ==